=== PATIENT | male | born 1960 | race African-American/Black ===

== ENCOUNTER 2019-05-06 09:48 | Day surgery (SDC) | payer OTHER ==
[~2019-05-06 09:48] MED LIST: PROPOFOL INJ 200 MG/20 ML VIAL IV ONE
--- NOTE | 2019-05-06 11:18 | Operative Report ---
Operative Report DATE OF SURGERY: 05/06/19 Operative Report: The risks benefits and alternatives of the procedure explained to the patient in detail and informed consent is obtained.A GIF Olympus video scope was inserted into the patient's mouth and hypopharynx, the esophagus is identified intubated and insufflated, the scope was then advanced through the esophagus stomach and duodenum, retroflexion maneuver is done, the esophagus stomach and first and second portions of the duodenum examined. PREOPERATIVE DIAGNOSIS: Epigastric pain POSTOPERATIVE DIAGNOSIS: Gastritis status post biopsy. No esophageal varices OPERATION: EGD with biopsy SURGEON: HILTON FONSECA ANESTHESIA: LMAC TISSUE REMOVED OR ALTERED: As noted above COMPLICATIONS: None. ESTIMATED BLOOD LOSS: None. INTRAOPERATIVE FINDINGS: As noted above. PROCEDURE: Patient tolerated the procedure well. No immediate postprocedure complications are noted. Patient is discharged in good condition. Discharge date 05/06/2019. Discharge diet: Regular. Discharge activity: Regular. 2 to 3-week follow-up to discuss findings. Patient is instructed to call the office or proceed to the emergency room should there be any further problems or questions. Wait on the pathology.
[2019-05-06 11:47] VITALS: BP 107/79
== END 2019-05-06 11:45 | disposition home or self-care (01) ==
LOC: END 09:48
PROVIDERS: ATTEND Internal Medicine Gastroenterology
DX: K29.50 Unspecified chronic gastritis without bleeding (principal); K74.60 Unspecified cirrhosis of liver; K86.1 Other chronic pancreatitis
CPT/HCPCS: 43239; 82962; 88305 ×2; 00731; J2704; 731